=== PATIENT | male | born 1985 | race Caucasian/White ===

== ENCOUNTER 2016-06-09 10:42 | Emergency (ER) | payer OTHER ==
[2016-06-09 11:00] LABS: HEMOGLOBIN 13.3 gm/dl (14.0-17.5); RED BLOOD COUNT 4.34 M/UL (4.20-5.50); WHITE BLOOD COUNT 7.2 K/UL (4.5-11.0)
[2016-06-09 11:25] LABS: BUN/CREATININE RATIO 24 (0-10)
== END 2016-06-09 14:38 | disposition home or self-care (01) ==
LOC: ER1 10:42
PROVIDERS: Emergency Medicine
DX: R07.1 Chest pain on breathing (principal); R06.02 Shortness of breath
CPT/HCPCS: 36415; 71020; 80053; 82550; 82553; 83874; 84484; 85025; 85379; 93005; 99285

== ENCOUNTER 2016-08-10 00:20 | Observation (INO) | payer OTHER ==
[~2016-08-10] VITALS: Ht 180.3 cm; Wt 70.3 kg
[2016-08-10 00:47] LABS: HEMOGLOBIN 13.6 gm/dl (14.0-17.5); RED BLOOD COUNT 4.39 M/UL (4.20-5.50)
[2016-08-10 01:11] LABS: BUN/CREATININE RATIO 19 (0-10)
[2016-08-10] MEDS ORDERED: IBUPROFEN400 MG PO (19:04)
[2016-08-10] MEDS ORDERED: [UNRECOGNIZED DRUG - OTHER] PO (19:05)
== END 2016-08-10 19:27 | disposition home or self-care (01) ==
LOC: ER1 00:20 → ZEROF 04:00 → MED SURG 4 04:00
PROVIDERS: Student in an Organized Health Care Education/Training Program; ADMIT Internal Medicine
DX: T50.991A Poisoning by other drugs, medicaments and biological substances, accidental (unintentional), initial encounter (principal); F19.10 Other psychoactive substance abuse, uncomplicated; R41.82 Altered mental status, unspecified; K02.9 Dental caries, unspecified
CPT/HCPCS: ECHO; 36415; 70450; 71010; 80053; 80307; 81001; 82550; 82553; 83735; 83874; 84484; 85025; 85379; 85610; 85730; 93005; 93306; 99285; G0378; G0480

== ENCOUNTER 2021-02-10 20:39 | Observation (INO) | payer OTHER ==
[~2021-02-10] VITALS: Ht 180.3 cm; Wt 70.3 kg
[~2021-02-10 20:39] MED LIST: IBUPROFEN400 MG PO; [UNRECOGNIZED DRUG - OTHER] PO
[2021-02-10 22:01] LABS: HEMOGLOBIN 15.8 gm/dl (14.0-17.5); RED BLOOD COUNT 4.9 M/UL (4.20-5.50); WHITE BLOOD COUNT 12.6 K/UL (4.5-11.0)
[2021-02-10 22:35] LABS: BUN/CREATININE RATIO 14 (0-10)
[2021-02-12 06:39] LABS: HEMOGLOBIN 15.2 gm/dl (14.0-17.5); RED BLOOD COUNT 4.73 M/UL (4.20-5.50)
[2021-02-12 06:45] LABS: WHITE BLOOD COUNT 7.9 K/UL (4.5-11.0)
[2021-02-12 07:00] LABS: BUN/CREATININE RATIO 13 (0-10)
[2021-02-12] MEDS ORDERED: ESCITALOPRAM OX10 MG PO (09:10)
== END 2021-02-12 12:11 | disposition home or self-care (01) ==
LOC: ER1 20:39 → M/S 02-11 00:31 → CDU 02-11 00:31 → M/S 02-11 02:41
PROVIDERS: Internal Medicine; Preventive Medicine Occupational Medicine; ADMIT Internal Medicine
DX: R56.9 Unspecified convulsions (principal); F32.A Depression, unspecified; R77.8 Other specified abnormalities of plasma proteins; G93.40 Encephalopathy, unspecified; E87.2 Acidosis; E87.6 Hypokalemia; R40.4 Transient alteration of awareness; F17.210 Nicotine dependence, cigarettes, uncomplicated; Z20.822 Contact with and (suspected) exposure to COVID-19; Z63.79 Other stressful life events affecting family and household; Z79.899 Other long term (current) drug therapy
CPT/HCPCS: ECHO; 36415; 36600; 70450; 70551; 71045; 80053; 80307; 81001; 82009; 82140; 82550; 82553; 82607; 82746; 82803; 83036; 83605; 83690; 83735; 83874; 84100; 84439; 84443; 84484; 84550; 85025; 85027; 85652; 86140; 87086; 93005; 93306; 96372; 96374; 99285; G0378; G0480; J1650; J1953; Q9967; U0002

== ENCOUNTER 2021-08-27 13:53 | Observation (INO) | payer OTHER ==
[~2021-08-27] VITALS: Ht 180.3 cm; Wt 69.9 kg
[~2021-08-27 13:53] MED LIST changes: +ESCITALOPRAM OX10 MG PO
[2021-08-27 14:43] LABS: HEMOGLOBIN 14.7 gm/dl (14.0-17.5); RED BLOOD COUNT 4.63 M/UL (4.20-5.50); WHITE BLOOD COUNT 7.8 K/UL (4.5-11.0)
[2021-08-27 15:06] LABS: BUN/CREATININE RATIO 18 (0-10)
[2021-08-28 03:01] LABS: BUN/CREATININE RATIO 21 (0-10)
== END 2021-08-28 08:33 | disposition home or self-care (01) ==
LOC: ER1 13:53 → CDU 16:34 → MED SURG 4 18:27
PROVIDERS: Emergency Medicine; ADMIT Internal Medicine
DX: R55 Syncope and collapse (principal); R77.8 Other specified abnormalities of plasma proteins; N17.9 Acute kidney failure, unspecified; E86.0 Dehydration; F17.210 Nicotine dependence, cigarettes, uncomplicated; Z20.822 Contact with and (suspected) exposure to COVID-19
CPT/HCPCS: 36415; 70450; 71045; 80048; 80053; 82550; 82553; 83735; 83880; 84484; 85025; 85379; 93005; 99285; G0378; J7030; U0002